=== PATIENT | male | born 1940 | race Caucasian/White ===

== ENCOUNTER → 2021-02-18 10:20 | Outpatient (CLI) | payer MEDICARE, OTHER, SELFPAY ==
--- NOTE | 2021-02-26 18:54 | WPDSLEEPSTUD ---
Sleep Study Date of Study: 02/18/21 Ordering Provider: Jesús May MD Interpreting Physician: Cassie Sinclair MD Sleep Study Type: ASV Height: 1.78 m Weight: 111.13 kg Body Mass Index: 35.2 Neck Circumference (inches): 18 Prole: 8 Reason for Sleep Study Central apneas on auto PAP download Sleep History Micheal Chong is a 80-year-old man with a history of complex sleep apnea. On CPAP therapy he continued to have severe apnea, BiPAP titration was performed. Initially he responded well however is apnea index is remained elevated. His pressures were reduced once due to aerophagia, he was on and this was reduced to 16/. He does have good sleep quality and energy levels. He is now referred for adaptive Servo ventilator titration. He has used PAP therapy 6 years, recent download shows he is on auto bilevel, Max IPAP 16 cm, minimum EPAP 12 cm, pressure support4 cm with AHI 37.9, central AI 26.6, obstructive index 10.2. Compliance from January 12 through February 10, 2021 shows that he use it 100% of the days greater than 4 hours, average usage 7 hours 3 minutes. He is in a V auto mode, maximum IPAP is 16, minimum EPAP is 12 cm pressure support is 4 cm. His AHI is 37.9. His central AHI is 26.6 and his obstructive AHI is 10.2. His echocardiogram on 10/16/2019 shows LVEF of 55-60%, impaired relaxation, normal RV size and function, normal pulmonary artery pressure. This was an echo at [facility], [facility]. He does not awaken from sleep feeling short of breath, he does not awaken with heartburn belching or coughing. He does not snore and others do not tell him that he snores. He does not have trouble sleeping with a cold. He does not wake up gasping for breath at night. He rarely has breathing problems at night observed by others. He does not sweat excessively at night or notices heart pounding or beating irregularly at night. He frequently falls asleep during the day, frequently falls asleep involuntarily. He does not fall asleep while driving. He does not have loss of muscle tone with strong emotion. He does not have daytime difficulties due to excessive sleepiness. He does not feel paralyzed on waking or falling asleep. He does not have vivid dreamlike scenes upon awakening or falling asleep. He does not feel afraid to go to sleep. He denies having nightmares. He does not remember his dreams. He occasionally has racing thoughts. He does not feel sad or depressed. He occasionally has anxiety. He does not complain of muscular tension and he does not notice parts of his body jerking. He does not kick at night. He frequently has crawling and aching feelings in his legs. He does not have any kind of leg pain at night. He does not have morning jaw pain. He occasionally grind his teeth during sleep. He is not bothered by pain during the day, is not awakened by pain at night. He is not wake up feeling stiff in the morning with sore achy muscles are pain in the neck and spine. Normal bedtime 11:30 p.m. falling asleep within 30-60 minutes typically waking once at night to urinate. He is able to return to sleep in 30 minutes. He wakes with a day at 6:30 a.m.. His weekend schedule is the same. He estimates getting 6-8 hours of sleep at night he takes naps in the afternoon or evening. A short nap may be refreshing. He feels better in the afternoon compared other times of day. Habits: Never smoked tobacco. no caffeine, alcohol or recreational drugs. [facility] Past Medical History Medical History (Updated 02/26/21 @ 18:57 by Cassie Sinclair MD) Atrial fibrillation CAD (coronary artery disease) Complex sleep apnea syndrome History of CVA (cerebrovascular accident) Hypercholesterolemia Hypertension Myocardial infarction Surgical History Surgical History (Updated 02/27/21 @ 14:28 by Cassie Sinclair MD) S/P CABG x 6 Social History Social History (Updated 02/27/21 @ 14:28 by Cassie Butler
[2021-03-01 18:35] VITALS: BMI 35.2
== END ==
PROVIDERS: Visit Provider Otolaryngology
DX: G47.33 Obstructive sleep apnea (adult) (pediatric) (principal)
CPT/HCPCS: 95811